=== PATIENT | female | born 1950 | race Caucasian/White ===

== ENCOUNTER → 2024-02-20 10:43 | Outpatient (REF) | payer OTHER, SELFPAY | LOC: WDC 10:43 | PROVIDERS: ATTENDING PHYSICIAN Family Medicine | DX: Z12.31 Encounter for screening mammogram for malignant neoplasm of breast (principal) | CPT/HCPCS: 77063; 77067 ==

== ENCOUNTER → 2025-02-21 08:37 | Outpatient (REF) | payer OTHER, SELFPAY | LOC: WDC 08:37 | PROVIDERS: ATTENDING PHYSICIAN Physician Assistant | DX: Z12.31 Encounter for screening mammogram for malignant neoplasm of breast (principal); Z12.39 Encounter for other screening for malignant neoplasm of breast | CPT/HCPCS: 77063; 77067 ==